=== PATIENT | male | born 1965 | race African-American/Black ===

== ENCOUNTER 2018-11-14 15:56 | Emergency (ER) | payer MEDICARE, OTHER ==
[2018-11-14 16:00] VITALS: TEMP 97.2
[2018-11-14] MEDS ORDERED: PROCHLORPERAZINE EDISYLATE 5 MG/ML SOL IV ONE (16:38)
[2018-11-14] MEDS ORDERED: SODIUM CHLORIDE 0.9% 500 ML 500 ML IV ONE (16:38)
[2018-11-14] MEDS ORDERED: DIPHENHYDRAMINE 50 MG/ML SOL IV ONE (16:38)
[2018-11-14] MEDS ORDERED: DIPHENHYDRAMINE 50 MG/ML SOL ONE (16:44)
[2018-11-14] MEDS ORDERED: PROCHLORPERAZINE EDISYLATE 5 MG/ML SOL ONE (16:44)
[2018-11-14 17:10] LABS: BASOPHILS % (AUTO) 1 % (0-3); EOSINOPHILS % (AUTO) 4 % (0-9); HEMATOCRIT 44 % (39-53); HEMOGLOBIN 13.7 gm/dl (13.5-17.7); LYMPHOCYTES % (AUTO) 31.9 % (10-50); MEAN CORPUSCULAR HGB CONC 31.6 gm/dl (32.0-36.0); MEAN CORPUSCULAR VOLUME 92 fL (80-100); MONOCYTES % (AUTO) 8.7 % (0-12); NEUTROPHILS % (AUTO) 54.6 % (37-80)
[2018-11-14] MEDS ORDERED: RANITIDINE HYDROCHLORIDE 25 MG/ML SOL IV ONE (17:15)
[2018-11-14] MEDS ORDERED: SOLUMEDROL 125 MG/2 ML 125 MG/2 ML PDS IV ONE (17:15)
[2018-11-14] MEDS ORDERED: SOLUMEDROL 125 MG/2 ML 125 MG/2 ML PDS ONE (17:18)
[2018-11-14] MEDS ORDERED: RANITIDINE HYDROCHLORIDE 25 MG/ML SOL ONE (17:18)
[2018-11-14 17:25] LABS: ALBUMIN 3.1 gm/dl (3.4-5.0); BILIRUBIN,TOTAL 0.2 mg/dl (0.2-1.0); CALCIUM 8.5 mg/dl (8.5-10.1); CARBON DIOXIDE 26.9 mEq/L (21-32); CREATININE 1.41 mg/dl (0.80-1.30); CRP INFLAMMATORY 0.84 mg/dl (0.00-0.33); TOTAL PROTEIN 7.4 gm/dl (6.4-8.2)
[2018-11-14] MEDS ORDERED: KETOROLAC TROMETHAMINE 30 MG/ML SOL IV ONE (18:06)
[2018-11-14] MEDS ORDERED: LORAZEPAM 2 MG/ML SOL IV ONE (18:06)
[2018-11-14] MEDS ORDERED: KETOROLAC TROMETHAMINE 30 MG/ML SOL ONE (18:09)
[2018-11-14] MEDS ORDERED: LORAZEPAM 2 MG/ML SOL ONE (18:10)
[2018-11-14 18:16] LABS: SEDIMENTATION RATE 22 mm/hr (0-15)
[2018-11-14 19:48] VITALS: BP 129/87; PULSE 74; RESP 81; O2SAT 98
== END 2018-11-14 19:40 | disposition home or self-care (01) | DRG 103 ==
LOC: ED 15:56
DX: R51 Headache (principal); T46.4X5A Adverse effect of angiotensin-converting-enzyme inhibitors, initial encounter; I10 Essential (primary) hypertension; E11.9 Type 2 diabetes mellitus without complications; Z79.1 Long term (current) use of non-steroidal anti-inflammatories (NSAID)
CPT/HCPCS: 36415; 70450; 80053; 85025; 85651; 86140; 96365; 96374; 96375; 99284; 99285; J0780; J1200; J1885; J2060; J2780; J2930